=== PATIENT | female | born 1945 | race Hispanic/Latino ===

== ENCOUNTER 2021-02-10 09:38 | Outpatient (CLI) | payer MEDICARE | END 2021-02-10 09:39 | disposition home or self-care (01) | LOC: BICULT 09:38 | PROVIDERS: ATTEND Internal Medicine Nephrology | DX: I12.9 Hypertensive chronic kidney disease with stage 1 through stage 4 chronic kidney disease, or unspecified chronic kidney disease (principal); N18.30 Chronic kidney disease, stage 3 unspecified | CPT/HCPCS: 76770 ==

== ENCOUNTER 2022-12-16 14:10 | Outpatient (CLI) | payer MEDICARE | END 2022-12-16 14:11 | disposition home or self-care (01) | LOC: BICULT 14:10 | PROVIDERS: ATTEND Nurse Practitioner Family | DX: I83.813 Varicose veins of bilateral lower extremities with pain (principal) | CPT/HCPCS: 93970 ==

== ENCOUNTER 2024-06-17 10:21 | Outpatient (CLI) | payer MEDICARE | END 2024-06-17 10:22 | disposition home or self-care (01) | LOC: ULT 10:21 | PROVIDERS: ATTEND Nurse Practitioner Family | DX: E04.1 Nontoxic single thyroid nodule (principal) | CPT/HCPCS: 76536 ==

== ENCOUNTER → 2024-07-29 | Day surgery (SDC) | payer MEDICARE ==
[~2024-07-29] MED LIST: Lidocaine 1% w/Epinephrine 1:100K 20 ML VIAL ONE; Sodium Bicarbonate 2.5 MEQ/5 ML SDV ONE
== END ==
LOC: ULT 12:32
PROVIDERS: ATTEND Otolaryngology
PROC: 0GBH4ZX Excision of Right Thyroid Gland Lobe, Percutaneous Endoscopic Approach, Diagnostic (ICD-10-PCS; principal; 2024-07-29)
DX: E04.1 Nontoxic single thyroid nodule (principal)
CPT/HCPCS: 10005; 88173; 88305